=== PATIENT | female | born 1970 ===

== ENCOUNTER 2017-04-02 22:56 | Emergency (ER) | payer BC ==
[2017-04-02 23:50] VITALS: BP 106/67; PULSE 91; RESP 20; TEMP 98.3; O2SAT 100
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
--- NOTE | 2017-04-03 09:13 | RAD ---
HISTORY: r rib pain COMPARISON: No prior. TECHNIQUE: Chest PA and lateral FINDINGS: LUNGS: Poor inspiration with low lung volumes, crowded bronchovascular markings and mild bibasilar atelectasis. PLEURA: No significant pleural effusion identified. No pneumothorax apparent. CARDIOVASCULAR: Normal. OSSEOUS STRUCTURES: No significant abnormalities. VISUALIZED UPPER ABDOMEN: Normal. OTHER FINDINGS: None. IMPRESSION: Poor inspiration with low lung volumes, crowded bronchovascular markings and mild bibasilar atelectasis.
== END 2017-04-03 04:24 | disposition home or self-care (01) ==
LOC: H.ER 22:56
DX: S20.219A Contusion of unspecified front wall of thorax, initial encounter (principal); W22.8XXA Striking against or struck by other objects, initial encounter; Y92.89 Other specified places as the place of occurrence of the external cause

== ENCOUNTER 2017-05-15 09:15 | Day surgery (SDC) | payer BC ==
[2017-05-15] MEDS ORDERED: Lactated Ringer's 500 ML IV ONE (09:30)
[2017-05-15 10:45] VITALS: O2SAT 100
[2017-05-15] MEDS ORDERED: Lidocaine PF 2% (5 ml) Inj (For Cardiac Arrhy) IV ONE (11:45)
[2017-05-15] MEDS ORDERED: Midazolam 2 MG/2 ML VIAL ONE (11:45)
[2017-05-15] MEDS ORDERED: Propofol 10 mg/ml Inj (20 ML) ONE (11:45)
[2017-05-15] MEDS ORDERED: ePHEDrine 50 mg/ml Inj ONE (12:02)
[2017-05-15 12:25] VITALS: BP 95/49; PULSE 96; RESP 20; TEMP 97
== END 2017-05-15 12:46 | disposition home or self-care (01) ==
LOC: H.ENDO 09:15
PROVIDERS: ATTEND Internal Medicine Gastroenterology
DX: K64.8 Other hemorrhoids (principal); D64.9 Anemia, unspecified; K29.50 Unspecified chronic gastritis without bleeding
CPT/HCPCS: 43202; 45378; 88305; J2250; J2704; J7120

== ENCOUNTER 2017-10-16 07:49 | Day surgery (SDC) | payer BC ==
[2017-10-16] MEDS ORDERED: Lactated Ringer's 500 ML IV ONE (08:21)
[2017-10-16] MEDS ORDERED: Propofol 10 mg/ml Inj (20 ML) ONE (10:22)
[2017-10-16 11:06] VITALS: TEMP 97.5
[2017-10-16 11:32] VITALS: BP 102/73; PULSE 76; RESP 16; O2SAT 100
== END 2017-10-16 11:31 | disposition home or self-care (01) ==
LOC: H.ENDO 07:49 → EDUNIT# 11:45
PROVIDERS: ATTEND Internal Medicine Gastroenterology
DX: K30 Functional dyspepsia (principal); D64.9 Anemia, unspecified; K29.40 Chronic atrophic gastritis without bleeding; K29.80 Duodenitis without bleeding; R10.13 Epigastric pain
CPT/HCPCS: 43239; 88305; J2001; J2704; J7120